=== PATIENT | male | born 1955 | race Hispanic/Latino ===

== ENCOUNTER 2022-11-20 13:06 | Emergency (ER) | payer OTHER ==
[~2022-11-20] VITALS: Ht 182.9 cm; Wt 83.9 kg
[2022-11-20] MEDS ORDERED: IBUP-2070 PO (15:13)
[2022-11-20] MEDS ORDERED: D-ME118S47 PO (15:14)
[2022-11-20 15:36] VITALS: BP 146/84
== END 2022-11-20 15:35 | disposition home or self-care (01) ==
LOC: EDH 13:06
DX: U07.1 COVID-19 (principal); E78.00 Pure hypercholesterolemia, unspecified
CPT/HCPCS: 99284; 71045; 87635; 87804 ×2; C9803